=== PATIENT | female | born 2000 | race Caucasian/White ===

== ENCOUNTER → 2025-07-02 14:49 | Outpatient (REF) | payer OTHER, SELFPAY | LOC: EMG 14:49 | PROVIDERS: ATTENDING PHYSICIAN Nurse Practitioner Family | DX: G62.9 Polyneuropathy, unspecified (principal); R20.0 Anesthesia of skin | CPT/HCPCS: 95886; 95911 ==

== ENCOUNTER 2025-07-11 06:19 | Day surgery (SDC) | payer OTHER, SELFPAY | END 2025-07-11 15:33 | disposition home or self-care (01) | LOC: GI 06:19 | PROVIDERS: ATTENDING PHYSICIAN Internal Medicine Gastroenterology | DX: K20.90 Esophagitis, unspecified without bleeding (principal); K29.70 Gastritis, unspecified, without bleeding; K31.89 Other diseases of stomach and duodenum; K29.50 Unspecified chronic gastritis without bleeding | CPT/HCPCS: 43239; 88305; 88342 ==